=== PATIENT | female | born 1960 | race Caucasian/White ===

== ENCOUNTER → 2017-02-21 | Outpatient (CLI) | payer OTHER ==
[~2017-02-21] MED LIST: KETO10TA PO; METO10TA82 PO; MULT-516 PO; OMNIPAQUE 350 MG/ML, 100ML BOTTLE ONE; ONDA-39 PO; VITAMIN D PO
== END | disposition home or self-care (01) ==
LOC: CFH 12:33
PROVIDERS: ATTEND Specialist
DX: K76.89 Other specified diseases of liver (principal); C56.1 Malignant neoplasm of right ovary; C56.2 Malignant neoplasm of left ovary
CPT/HCPCS: 74177; Q9967

== ENCOUNTER → 2017-09-12 | Outpatient (CLI) | payer OTHER ==
[~2017-09-12] MED LIST changes: -ONDA-39 PO; +ONDA4TAB12 PO
== END | disposition home or self-care (01) ==
LOC: CFH 09:25
PROVIDERS: ATTEND Specialist
DX: C56.1 Malignant neoplasm of right ovary (principal); K76.89 Other specified diseases of liver
CPT/HCPCS: 71260; 74177; Q9967

== ENCOUNTER → 2018-10-20 | Outpatient (CLI) | payer BC, OTHER | END | disposition home or self-care (01) | LOC: CFH 08:31 | PROVIDERS: ATTEND Specialist | DX: D18.03 Hemangioma of intra-abdominal structures (principal); D73.89 Other diseases of spleen; K76.89 Other specified diseases of liver; C56.9 Malignant neoplasm of unspecified ovary | CPT/HCPCS: 71260; 74177; Q9967 ==

== ENCOUNTER → 2019-01-05 | Outpatient (CLI) | payer BC | END | disposition home or self-care (01) | LOC: CFH 11:05 | PROVIDERS: ATTEND Nurse Practitioner Acute Care | DX: C56.1 Malignant neoplasm of right ovary (principal); C56.2 Malignant neoplasm of left ovary; K76.0 Fatty (change of) liver, not elsewhere classified; D73.89 Other diseases of spleen; K76.89 Other specified diseases of liver; Z90.710 Acquired absence of both cervix and uterus | CPT/HCPCS: 74177; Q9967 ==

== ENCOUNTER → 2019-08-23 | Outpatient (CLI) | payer BC | END | disposition home or self-care (01) | LOC: CFH 11:46 → EDSTATUS 13:15 | PROVIDERS: ATTEND Specialist | DX: D73.89 Other diseases of spleen (principal); C56.2 Malignant neoplasm of left ovary; C56.1 Malignant neoplasm of right ovary; Z90.710 Acquired absence of both cervix and uterus; Z90.722 Acquired absence of ovaries, bilateral | CPT/HCPCS: 74177; Q9967 ==

== ENCOUNTER → 2019-11-26 | Outpatient (CLI) | payer BC ==
[~2019-11-26] MED LIST changes: +ONDA-89 PO; -ONDA4TAB12 PO
== END | disposition home or self-care (01) ==
LOC: CFH 09:24
PROVIDERS: ATTEND Specialist
DX: C56.2 Malignant neoplasm of left ovary (principal); C56.1 Malignant neoplasm of right ovary; R19.09 Other intra-abdominal and pelvic swelling, mass and lump; C57.00 Malignant neoplasm of unspecified fallopian tube; N95.2 Postmenopausal atrophic vaginitis; F41.9 Anxiety disorder, unspecified; D73.89 Other diseases of spleen
CPT/HCPCS: 71260; 74177; Q9967